=== PATIENT | female | born 1985 | race Caucasian/White ===

== ENCOUNTER → 2024-03-23 | Outpatient (CLI) | payer OTHER ==
--- NOTE | 2024-03-24 19:10 | US ---
EXAMINATION TYPE: US transvaginal DATE OF EXAM: 03/23/2024 COMPARISON: NONE CLINICAL INDICATION: Female, 38 years old with history of N93.9 ABN UTERAN BLEEDING; h/o DUB, has kohli d normal cycles the past 2 months, h/o ovarian cysts TECHNIQUE: TA. Transabdominal grayscale sonographic images of the pelvis were acquired. FINDINGS: Date of LMP: on cycle now EXAM MEASUREMENTS: Uterus: 9.6 x 4.8 x 4.3 cm Endometrial Stripe: 1.6 cm Right Ovary: not seen Left Ovary: 3.0 x 1.6 x 2.0cm 1. Uterus: Anteverted nabothian cysts seen 2. Endometrium: wnl 3. Right Ovary: not seen due to bowel gas 4. Left Ovary: multiple dominate follicles, largest = 1.8 x 1.4 x 1.4cm 5. Bilateral Adnexa: wnl 6. Posterior cul-de-sac: wnl IMPRESSION: 1. Left Ovarian follicles [facility], , 03/24/2024 7:07 PM
--- NOTE | 2024-03-25 15:03 | MM ---
Reason for Exam: Screening (asymptomatic). Baseline mammogram. Patient History: Menarche at age 10. First Full-Term at age 24. Maternal aunt had breast cancer under age 50. Paternal aunt had breast cancer. Last menstrual period: 03/22/2024 Risk Values: Nini 5 year model risk: 0.4%. NCI Lifetime model risk: 10.0%. Prior Study Comparison: Patient's first Mammogram. No prior studies available for comparison. Tissue Density: The breasts are heterogeneously dense, which may obscure small masses. Findings: Analyzed By CAD. The pattern is symmetrical. There may be a small nodular density within the inferior left mediolateral oblique view likely lateral. This measures 0.4 cm located 7 cm nipple. Additional workup is recommended. No suspicious groups of microcalcifications, spiculated or lobular masses, architectural distortion or other secondary signs of malignancy are mammographically apparent. Overall Assessment: Incomplete: need additional imaging evaluation, BI-RAD 0 Management: Diagnostic Mammogram of the left breast. Diagnostic Breast Ultrasound of the left breast. A negative mammogram report should not preclude additional follow up of suspicious palpable abnormalities. Patient should continue monthly self breast exam. A clinical breast exam by your physician is recommended on an annual basis and results should be correlated with mammographic findings. Note on Nini scores and lifetime risk: 1. A Nini score greater than 3% is considered moderate risk. If this is the case, consider specialist referral to assess eligibility for a risk reducing agent. 2. If overall lifetime risk for the development of breast cancer is 20% or higher, the patient may qualify for future screening with alternating mammogram and breast MRI. [facility], , 03/25/2024 3:00 PM. Electronically signed and approved by: Toney Khan D.O. Radiologis
== END | disposition home or self-care (01) ==
LOC: RADMAMWWP 15:00
PROVIDERS: ATTEND Family Medicine
DX: Z12.31 Encounter for screening mammogram for malignant neoplasm of breast (principal); R92.333 Mammographic heterogeneous density, bilateral breasts; N93.9 Abnormal uterine and vaginal bleeding, unspecified; Z80.3 Family history of malignant neoplasm of breast
CPT/HCPCS: 76830; 77067

== ENCOUNTER → 2024-03-30 | Outpatient (CLI) | payer OTHER ==
--- NOTE | 2024-03-30 09:52 | MM ---
Reason for Exam: Additional evaluation requested from abnormal screening. Last screening mammogram was performed less than 1 month ago. Patient History: Menarche at age 10. First Full-Term at age 24. Maternal aunt had breast cancer under age 50. Paternal aunt had breast cancer. Risk Values: Nini 5 year model risk: 0.4%. NCI Lifetime model risk: 10.0%. Prior Study Comparison: 03/23/2024 Bilateral MG screening mammo w CAD, [facility]. Tissue Density: Left: There are scattered areas of fibroglandular density. Findings: Analyzed By CAD. Asymmetric density seen previously is compatible with summation shadow additional views obtained. No persistent mass is identified. Overall Assessment: Negative, BI-RAD 1 Management: Screening Mammogram of both breasts at age 40. . Results were given to the patient verbally at the time of exam. Patient should continue monthly self-breast exams. A clinical breast exam by your physician is recommended on an annual basis. This exam should not preclude additional follow-up of suspicious palpable abnormalities. Note on Nini scores and lifetime risk: 1. A Nini score greater than 3% is considered moderate risk. If this is the case, consider specialist referral to assess eligibility for a risk reducing agent. 2. If overall lifetime risk for the development of breast cancer is 20% or higher, the patient may qualify for future screening with alternating mammogram and breast MRI. [facility], , 03/30/2024 9:49 AM. Electronically signed and approved by: Shant Mendosa M.D. Radiologis
== END | disposition home or self-care (01) ==
LOC: RADMAMWWP 09:07
PROVIDERS: ATTEND Family Medicine
DX: R92.8 Other abnormal and inconclusive findings on diagnostic imaging of breast (principal); Z80.3 Family history of malignant neoplasm of breast; R92.322 Mammographic fibroglandular density, left breast
CPT/HCPCS: 77065; G0279; 77061